=== PATIENT | female | born 1975 | race Caucasian/White ===

== ENCOUNTER → 2017-04-18 | Outpatient (CLI) | payer OTHER ==
[~2017-04-18] MED LIST: AMBIEN CR12.5 MG PO; AMBIEN10 MG PO; Afrin,Genasal Decon, NS; COMPAZINE10 MG PO; Cymbalta PO; DS PREP PAK1 EACH TP; FLAGYL500 MG PO; Flintstones PO; Flonase BOTH NARES; MS Contin PO; NUVIGIL150 MG PO; PERCOCET 10/1 TABLET PO; ROXICODONE15 MG PO; Reglan PO; Senokot,Sennagen PO; Skelaxin PO; TOPAMAX100 MG PO; TREXIMET 85-1 TABLET PO; ULTRAM ER300 MG PO; VICODIN; XANAFLEX PO; Zofran ODT PO
== END | disposition home or self-care (01) ==
LOC: AMB 12:31
PROC: B01B1ZZ Fluoroscopy of Spinal Cord using Low Osmolar Contrast (ICD-10-PCS; principal; 2017-04-18)
DX: M50.321 Other cervical disc degeneration at C4-C5 level (principal); M54.9 Dorsalgia, unspecified; M25.78 Osteophyte, vertebrae; M51.26 Other intervertebral disc displacement, lumbar region; M43.27 Fusion of spine, lumbosacral region
CPT/HCPCS: 62305; 72126; 72132